=== PATIENT | female | born 1965 | race American Indian/Alaskan Native ===

== ENCOUNTER 2018-05-22 23:19 | Emergency (ER) | payer OTHER ==
[2018-05-22 23:19] VITALS: BMI 48.0
[2018-05-23 00:36] LABS: BASO # 0.1 K/uL (0.0-0.2); BASO % 0.9 % (0.0-2.0); EOS # 0.1 K/uL (0.0-0.7); EOS % 0.9 % (0.0-4.0); HEMOGLOBIN 13.6 g/dL (11.0-16.0); LYMPH # 3.4 K/uL (1.0-4.3); LYMPH % 36.3 % (20.0-40.0); MEAN CELL VOLUME 82.3 fL (81.0-99.0); MEAN CORPUSCULAR HEMOGLOBIN 28.7 pg (27.0-31.0); MEAN CORPUSCULAR HGB CONC 34.8 g/dL (33.0-37.0); MEAN PLATELET VOLUME 9.3 fL (7.2-11.7); MONO # 0.5 K/uL (0.0-0.8); MONO % 5.7 % (0.0-10.0); NEUT # 5.2 K/uL (1.8-7.0); NEUT % 56.2 % (50.0-75.0); RBC 4.75 Mil/uL (3.80-5.20); RED CELL DISTRIBUTION WIDTH 14.8 % (11.5-14.5); WHITE BLOOD COUNT 9.3 K/uL (4.8-10.8)
[2018-05-23 00:44] LABS: ALBUMIN 3.9 g/dL (3.5-5.0); ALT/SGPT 13 U/L (9-52); AST/SGOT 14 U/L (14-36); BLOOD UREA NITROGEN 15 mg/dL (7-17); CALCIUM 10.1 mg/dl (8.6-10.4); GFR NON-AFRICAN AMERICAN > 60; LIPASE 68 U/L (23-300)
[2018-05-23 00:48] LABS: SQUAMOUS EPITHIAL < 1 /hpf (0-5); URINE BILIRUBIN NEGATIVE (NEGATIVE); URINE BLOOD 1+ (NEGATIVE); URINE CLARITY Clear (Clear); URINE COLOR Straw (YELLOW); URINE GLUCOSE (UA) 3+ mg/dL (Normal); URINE LEUKOCYTE ESTERASE NEG Leu/uL (Negative); URINE PROTEIN 2+ mg/dL (NEGATIVE); URINE UROBILINOGEN NORMAL mg/dL (0.2-1.0)
[2018-05-23] MEDS ORDERED: Sodium Chloride 0.9% 500 ML IV STA (01:17)
[2018-05-23] MEDS ORDERED: Sodium Chloride 0.9% 500 ML IV ONE (01:30)
[2018-05-23 02:28] VITALS: PULSE 67
--- NOTE | 2018-05-23 02:31 | C.PDOC ---
History Of Present Illness 53 year old female with PMHx of DM, HTN, chronic back pain presents to the ED c/o lower abdominal and lower back pain that started last night. Patient reports this time back pain feels different. Patient reports she has not been taking her back pain medications due to feeling nauseous. Patient denies fever, chills, vomiting, diarrhea, constipation, dysuria, hematuria, saddle anesthesia, weakness, numbness. Time Seen by Provider: 05/23/18 00:03 Chief Complaint (Nursing): Abdominal Pain History Per: Patient History/Exam Limitations: no limitations Onset/Duration Of Symptoms: Days Current Symptoms Are (Timing): Still Present Location Of Pain/Discomfort: Diffuse Radiation Of Pain To:: Back Quality Of Discomfort: "Pain" Associated Symptoms: Nausea. denies: Vomiting, Diarrhea, Constipation, Urinary Symptoms Alleviating Factors: None Last Bowel Movement: Yesterday Recent travel outside of the [place]: No Additional History Per: Patient Abnormal Vaginal Bleeding: No Past Medical History Reviewed: Historical Data, Nursing Documentation, Vital Signs Vital Signs: Last Vital Signs Temp 99.4 F 05/22/18 23:27 Pulse 67 05/23/18 02:28 Resp 16 05/23/18 02:28 BP 160/78 H 05/23/18 02:28 Pulse Ox 97 05/23/18 02:28 - Medical History PMH: Arthritis, HTN, Hypercholesterolemia, Hypothyroidism Surgical History: Family History: States: Unknown Family Hx - Social History Hx Tobacco Use: No Hx Alcohol Use: No Hx Substance Use: No - Immunization History Hx Tetanus Toxoid Vaccination: No Hx Influenza Vaccination: No Hx Pneumococcal Vaccination: No Review Of Systems Constitutional: Negative for: Fever, Chills Cardiovascular: Negative for: Chest Pain Respiratory: Negative for: Shortness of Breath Gastrointestinal: Positive for: Abdominal Pain. Negative for: Nausea, Vomiting Genitourinary: Negative for: Dysuria, Hematuria Musculoskeletal: Positive for: Back Pain Neurological: Negative for: Weakness, Numbness Physical Exam - Physical Exam Appears: Non-toxic, No Acute Distress, Other (morbidly obese) Skin: Normal Color, Warm, Dry Head: Atraumatic, Normacephalic Eye(s): bilateral: Normal Inspection Neck: Normal ROM, Supple Chest: Symmetrical Cardiovascular: Rhythm Regular Respiratory: Normal Breath Sounds, No Rales, No Rhonchi, No Wheezing Gastrointestinal/Abdominal: Soft, Tenderness (suprapubic), No Guarding, No Rebound, Other (obese, scar) Back: No CVA Tenderness Extremity: Normal ROM, No Tenderness, No Swelling Neurological/Psych: Oriented x3, Normal Speech, Normal Cognition Gait: Steady ED Course And Treatment - Laboratory Results Result Diagrams: 05/23/18 00:28 05/23/18 00:28 O2 Sat by Pulse Oximetry: 97 (ON RA) Pulse Ox Interpretation: Normal - CT Scan/US CT abd/pelvis Other Rad Studies (CT/US): Read By Radiologist, Radiology Report Reviewed CT/US Interpretation: CT of the abdomen and pelvis without contrast. Clinical statement: Pain. Technique: Multiple axial CT images were obtained from the base of the lungs to the floor of the pelvis utilizing 5 mm axial slices without administration of contrast. Coronal and sagittal reconstructions were also obtained. Comparison: None. Findings: Chest: The visualized lung bases are clear. Abdomen: The kidneys are normal in size bilaterally. There is no evidence of hydronephrosis or nephrolithiasis. The liver, spleen, pancreas, gallbladder and adrenal glands are unremarkable. The aorta demonstrates normal caliber and contour. There is no abdominal lymphadenopathy or ascites. Pelvis: Moderate amount of stool fills the colon. The bowel is otherwise unremarkable, with no obstructive or inflammatory changes. The appendix is normal. The urinary bladder is within normal limits. There is no pelvic lymphadenopathy or ascites. The other pelvic structures appear unremarkable. Bones: There are no suspicious osseous abnormalities seen. Impression: 1. Mild constipation. No obstructive or inflammatory bowel changes. 2. No evidence of hydronephrosis or nephrolithiasis. . Electronically signed on May 23, 2018 2:05:32 AM EDT by: Malina Diaz M.D., Certified by ABR, MSK, Neuroradiology Progress Note: Plan: - Labs. - UA. - IV fluids. - Toradol 30 mg IVP. - Lozartan 100 mg IVP. - Glucophage 1,000 mg PO. - Zofran 4 mg IVP. Pt has not taken her chronic meds today bc of nausea. losartan and glucophage PO ordered. Patient is resting comfortably, states pain has improved. Abdomen remains soft, NT and patient is tolerating PO. Labs and CT results d/w pt. Patient feels comfortable going home, will continue to monitor BS at home. Pt advised to continue current management, increase fiber in diet and follow up with Dr Soares for GI referral. Patient will be discharged home. Reevaluation Time: 02:34 Reassessment Condition: Improved Disposition Counseled Patient/Family Regarding: Diagnosis, Need For Followup, Rx Given - Disposition Referrals: Desire Soares MD [Staff Provider] - Disposition: HOME/ ROUTINE Disposition Time: 02:54 Condition: STABLE Additional Instructions: Please follow up with PMD for GI referral Increase fiber in diet Continue current medications Follow diabetic diet Return to ER if worse Prescriptions: Docusate Sodium [Colace] 100 mg PO BID #20 capsule Instructions: Acute Abdomen (Belly Pain), Adult (DC), Constipation, Adult (DC) Forms: [employer] (Jordanian) - Clinical Impression Clinical Impression: Abdominal pain, Constipation - PA / BIT SHARPENER / Resident Statement MD/DO has reviewed & agrees with the documentation as recorded. - Scribe Statement The provider has reviewed the documentation as recorded by the Scribe Oz Stern All medical record entries made by the Evelioibvera were at my direction and personally dictated by me. I have reviewed the chart and agree that the record accurately reflects my personal performance of the history, physical exam, medical decision making, and the department course for this patient. I have also personally directed, reviewed, and agree with the discharge instructions and d isposition.
[2018-05-23 03:07] VITALS: BP 153/89; RESP 18; TEMP 98.1; O2SAT 99
--- NOTE | 2018-05-23 11:45 | CT ---
Date of service: 05/23/2018 PROCEDURE: CT Abdomen and Pelvis with Oral contrast. HISTORY: Abdominal pain flank pain COMPARISON: Comparison made prior CT scan the abdomen pelvis 05/21/2016. TECHNIQUE: Contiguous axial images of the abdomen and pelvis without oral or intravenous contrast material.. Coronal and Sagittal reformats generated. Radiation dose: Total exam DLP = 1044.1 mGy-cm. This CT exam was performed using one or more of the following dose reduction techniques: Automated exposure control, adjustment of the mA and/or kV according to patient size, and/or use of iterative reconstruction technique. FINDINGS: LOWER THORAX: Lung bases demonstrate mild passive/dependent type atelectasis with more localized discrete linear/irregular type atelectasis and or scarring right posterior sulcus. No evidence of effusion or basilar pneumothorax. Heart size is mildly enlarged. No significant pericardial effusion. There is a tiny hiatal hernia. LIVER: Liver is mildly enlarged measuring over 20 cm in CC dimension the no evidence of hepatic mass collection or calcification. GALLBLADDER AND BILE DUCTS: Gallbladder appears incompletely distended. PANCREAS: Pancreas is slightly atrophic and fatty replaced. No evidence of pancreatic masses or collections. SPLEEN: Unremarkable. No splenomegaly. ADRENALS: No adrenal lesions. KIDNEYS AND URETERS: Kidneys demonstrate relatively symmetric nephrograms. No evidence of nephrolithiasis or hydronephrosis. BLADDER: Urinary bladder is incompletely distended which may in part account for thick-walled appearance however correlation with urinalysis recommended to exclude cystitis/UTI. REPRODUCTIVE: Unremarkable. APPENDIX: Normal appendix. BOWEL: Un evaluation of the bowel is somewhat limited due to the lack of oral contrast material. The stomach is incompletely distended with mild wall thickening as a result. Visualized loops of small bowel exhibit normal contour and caliber. No evidence of acute mechanical small bowel obstruction. Moderate amount of stool is seen within the cecum, at ascending and transverse colon consistent with mild fecal retention/constipation. No definitive mural wall thickening. PERITONEUM: Unremarkable. No fluid collection. No free air. Small to medium sized fat containing umbilical hernia. LYMPH NODES: Unremarkable. No enlarged lymph nodes. VASCULATURE: Unremarkable. No aortic aneurysm. BONES: Mild multilevel degenerative spondylosis of the lower thoracic and lumbar spine. There are no acute compression fractures no retropulsed fragments. OTHER FINDINGS: None. IMPRESSION: Hepatomegaly. Findings consistent with mild constipation. No evidence of nephrolithiasis or hydronephrosis. Urinary bladder exhibits wall thickening likely due to incomplete distention however correlation with urinalysis to exclude cystitis/UTI.
== END 2018-05-23 03:08 | disposition home or self-care (01) ==
LOC: C.ER 23:19
DX: K59.00 Constipation, unspecified (principal); R10.9 Unspecified abdominal pain; I10 Essential (primary) hypertension; E78.00 Pure hypercholesterolemia, unspecified
CPT/HCPCS: 74176; 80053; 81001; 83690; 85025; 96361; 96374; 96375; 99285; J1885; J2405; J7040